=== PATIENT | male | born 1985 | race Hispanic/Latino ===

== ENCOUNTER 2022-06-10 11:06 | Emergency (ER) | payer OTHER ==
[~2022-06-10] VITALS: Ht 182.9 cm; Wt 97.5 kg
[2022-06-10 11:48] VITALS: BP 138/87
[2022-06-10] MEDS ORDERED: TETANUS/DIPHTHERIA TOXOID [ADULT] 0.5 ML VIAL IM ONE (12:00)
== END 2022-06-10 13:35 | disposition home or self-care (01) ==
LOC: EDH 11:06
DX: S51.811A Laceration without foreign body of right forearm, initial encounter (principal); W01.0XXA Fall on same level from slipping, tripping and stumbling without subsequent striking against object, initial encounter; Y93.89 Activity, other specified; Y92.89 Other specified places as the place of occurrence of the external cause; Y99.8 Other external cause status
CPT/HCPCS: 12004; 90471; 90714